=== PATIENT | male | born 1985 | race Asian ===

== ENCOUNTER 2019-05-31 20:12 | Emergency (ER) | payer OTHER ==
[~2019-05-31] VITALS: Ht 162.6 cm; Wt 81.6 kg
[2019-05-31 20:42] VITALS: BP 166/107
== END 2019-06-01 00:38 | disposition home or self-care (01) ==
LOC: ER 20:19
DX: S01.112A Laceration without foreign body of left eyelid and periocular area, initial encounter (principal); V43.52XA Car driver injured in collision with other type car in traffic accident, initial encounter; Y93.89 Activity, other specified; Y99.8 Other external cause status; Y92.410 Unspecified street and highway as the place of occurrence of the external cause
CPT/HCPCS: 70450

== ENCOUNTER 2024-04-25 10:14 | Emergency (ER) | payer OTHER ==
[~2024-04-25] VITALS: Ht 160 cm; Wt 98.0 kg
[2024-04-25] MEDS: IBUPROFEN 800 MG TAB PO PRN (13:26)
[2024-04-25] MEDS ORDERED: IBUP-1456 PO (15:50)
[2024-04-25 16:03] VITALS: BP 118/72; PULSE 100; RESP 17; TEMP 98; O2SAT 98
== END 2024-04-25 16:06 | disposition home or self-care (01) ==
LOC: ER 10:35
DX: S63.610A Unspecified sprain of right index finger, initial encounter (principal); W18.39XA Other fall on same level, initial encounter; Y93.89 Activity, other specified; Y92.89 Other specified places as the place of occurrence of the external cause; Y99.8 Other external cause status
CPT/HCPCS: 73140